=== PATIENT | male | born 1995 | race Caucasian/White ===

== ENCOUNTER 2021-03-27 10:01 | Day surgery (SDCO) | payer OTHER ==
[~2021-03-27] VITALS: Ht 180.3 cm; Wt 108.2 kg
[~2021-03-27 10:01] MED LIST: BUSPAR5 MG PO; FLEXERIL10 MG PO; LANSOPRAZOLE30 MG PO; NAPROXEN500 MG PO; ZOLOFT50 MG PO
[2021-03-27 11:56] LABS: BASOPHIL 0.4 % (0-2); EOSINOPHIL 0.9 % (0-5); HCT 45.4 % (42.0-52.0); HGB 15.2 g/dl (13.2-18.0); LYMPHOCYTE 37.1 % (15-48); MCH 28.1 pg (25.0-31.0); MCHC 33.5 g/dL (32.0-36.0); MCV 83.9 fL (78.0-100.0); MONOCYTE 10.6 % (0-12); MPV 11.3 fL (6.0-9.5); NEUTROPHIL 50.9 % (41-80); NRBC 0; PLT 227 K/uL (150-400); RBC 5.41 M/uL (4.70-6.00); RDW 13.1 % (11.5-14.0)
[2021-03-27 12:08] LABS: ALBUMIN 4.1 g/dL (3.4-5.0); BILIRUBIN - TOTAL 0.4 mg/dL (0.2-1.0); BUN/CREAT RATIO (CALC) 12.3 RATIO; CREATININE 0.81 mg/dL (0.67-1.17); GLOBULIN (CALCULATION) 3.3 g/dL; POTASSIUM 3.8 mmol/L (3.5-5.1); TOTAL PROTEIN 7.4 g/dL (6.4-8.2)
[2021-03-27 12:24] LABS: INR 1.05 (0.9-1.2); PROTHROMBIN TIME 13.1 SECONDS (11.8-13.4)
[2021-03-27 12:25] LABS: PTT 33.5 SECONDS (24.4-34.7)
[2021-03-27] MEDS ORDERED: PROTONIX 40MG T40 MG PO (14:08)
[2021-03-27] MEDS ORDERED: LEXAPRO20 MG PO (14:08)
[2021-03-28] MEDS ORDERED: KEPPRA1000 MG PO (11:24)
[2021-03-28] MEDS ORDERED: OXYCODON-ACETA1 EAC1 PO (11:26)
[2021-03-28] MEDS ORDERED: PERCOCET 5-3251 EACH PO ×4 (11:30→13:34)
== END 2021-03-28 16:09 | disposition home or self-care (01) ==
LOC: FER 10:01 → FTCU 11:53
PROVIDERS: Emergency Medicine; ADMIT Internal Medicine
DX: S06.0X0A Concussion without loss of consciousness, initial encounter (principal); R56.9 Unspecified convulsions; S93.402A Sprain of unspecified ligament of left ankle, initial encounter; F41.9 Anxiety disorder, unspecified; F32.9 Major depressive disorder, single episode, unspecified; G47.30 Sleep apnea, unspecified; Z20.822 Contact with and (suspected) exposure to COVID-19; Z79.899 Other long term (current) drug therapy; W11.XXXA Fall on and from ladder, initial encounter; Y99.0 Civilian activity done for income or pay
CPT/HCPCS: 36415; 70450; 70553; 72125; 73502; 73600; 80053; 85025; 85610; 85730; 97161; A9579; G0378; J1170; J1953; J2405; U0002